=== PATIENT | female | born 1965 | race Caucasian/White ===

== ENCOUNTER 2016-09-26 22:10 | Emergency (ER) | payer OTHER ==
[2016-09-26 22:22] VITALS: BMI 33.2
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
[2016-09-26] MEDS ORDERED: ACETAMINOPHEN 325 MG TABLET (FP) PO ONE (23:55)
[2016-09-27] MEDS ORDERED: ACETAMINOPHEN 325 MG TABLET (FP) ONE
[2016-09-27 03:09] VITALS: BP 131/72; PULSE 67; TEMP 98
== END 2016-09-27 03:09 | disposition home or self-care (01) ==
LOC: JER 22:10
DX: S00.33XA Contusion of nose, initial encounter (principal); G44.319 Acute post-traumatic headache, not intractable; Y04.2XXA Assault by strike against or bumped into by another person, initial encounter; Y93.89 Activity, other specified; Y92.118 Other place in children's home and orphanage as the place of occurrence of the external cause; Y99.0 Civilian activity done for income or pay; E11.9 Type 2 diabetes mellitus without complications; E78.00 Pure hypercholesterolemia, unspecified; D64.9 Anemia, unspecified
CPT/HCPCS: 70450-TC; 70486-TC; 72125-TC; 99281-25

== ENCOUNTER 2018-09-02 16:14 | Emergency (ER) | payer OTHER ==
[2018-09-02 16:19] VITALS: BP 167/89; PULSE 81; TEMP 97.4; BMI 33.0
[2018-09-02] MEDS ORDERED: DIPHTH,PERTUSS(ACELL),TET 0.5 ML DISP.SYRIN IM ONE ×2 (16:48→17:07)
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
[2018-09-02 17:05] LABS: BASO % 0.8 % (0-2.0); EOS % 0.8 % (0-4.5); HEMATOCRIT 38.8 % (32.4-45.2); HEMOGLOBIN 13.6 GM/dL (10.7-15.3); LYMPH % 35.3 % (8-40); MCH 32.5 pg (25.7-33.7); MCHC 35.1 g/dl (32.0-36.0); MEAN CELL VOLUME 92.5 fl (80-96); MEAN PLT VOLUME 10.2 fl (7.5-11.1); MONO % 3.8 % (3.8-10.2); NEUT % 59.3 % (42.8-82.8); PLATELET COUNT 194 K/MM3 (134-434); RBC 4.19 M/mm3 (3.60-5.2); RDW 13.3 % (11.6-15.6); WHITE BLOOD COUNT 7.2 K/mm3 (4.0-10.0)
[2018-09-02] MEDS ORDERED: HIV POST EXPOSURE PROPHYLAXIS KIT NR ONE (17:10)
[2018-09-02] MEDS ORDERED: CEPHALEXIN MONOHYDRATE 500 MG CAPSULE (UD) PO ONE (17:10)
[2018-09-02] MEDS ORDERED: CEPHALEXIN MONOHYDRATE 500 MG CAPSULE (UD) ONE (17:15)
[2018-09-02] MEDS ORDERED: HIV POST EXPOSURE PROPHYLAXIS KIT PO ONE (17:17)
[2018-09-02 17:49] LABS: ALBUMIN 4.3 g/dl (3.4-5.0); ALK PHOS 101 U/L (45-117); ANION GAP 5 MMOL/L (8-16); BILIRUBIN,TOTAL 0.2 mg/dL (0.2-1); BLOOD UREA NITROGEN 14 mg/dL (7-18); CALCIUM 9.2 mg/dL (8.5-10.1); CHLORIDE 102 mmol/L (98-107); CO2 29 mmol/L (21-32); CREATININE 0.6 mg/dL (0.55-1.3); GLUCOSE,RANDOM 98 mg/dL (74-106); POTASSIUM 3.8 mmol/L (3.5-5.1); SGOT/AST 19 U/L (15-37); SGPT/ALT 33 U/L (13-61); SODIUM 137 mmol/L (136-145); TOT PROT 7.6 g/dl (6.4-8.2)
[2018-09-02] MEDS ORDERED: BACITRACIN 15 GM TUBE TOPICAL OINTMENT TP ONE (18:05)
[2018-09-02] MEDS ORDERED: BACITRACIN 15 GM TUBE TOPICAL OINTMENT ONE (18:09)
[2018-09-04 02:12] LABS: HBsAG SCREEN Negative (Negative)
== END 2018-09-02 18:15 | disposition home or self-care (01) ==
LOC: JERFT 16:14
PROC: 3E0234Z Introduction of Serum, Toxoid and Vaccine into Muscle, Percutaneous Approach (ICD-10-PCS; principal; 2018-09-02)
DX: S61.551A Open bite of right wrist, initial encounter (principal); W50.3XXA Accidental bite by another person, initial encounter; Y93.F9 Activity, other caregiving; Y92.118 Other place in children's home and orphanage as the place of occurrence of the external cause; Y99.0 Civilian activity done for income or pay
CPT/HCPCS: 36415; 80053; 85025; 86317; 86706; 86803; 87340; 87389; 90715; 99281-25

== ENCOUNTER 2019-08-25 15:27 | Emergency (ER) | payer OTHER ==
[2019-08-25 15:34] VITALS: BP 139/80; PULSE 94; TEMP 98; BMI 32.5
--- NOTE | 2019-08-25 16:02 | PDOC ---
History of Present Illness - General Chief Complaint: Eye Problem Stated Complaint: SWOLLEN RT EYE Time Seen by Provider: 08/25/19 15:35 History Source: Patient Exam Limitations: Clinical Condition - History of Present Illness Initial Comments: 08/25/19 16:05 Patient with history of diabetes presented with complaint of 2 days history of redness and swelling to right upper eyelid with mild pain to corner of eyelid for 2 days. Denies blurry vision, change in vision redness to eye. Patient report has similar episode in the past which resolved with eyedrops. Patient requests referral to ophthalmology which her friend sees. Denies any other symptoms. Denies any trauma or injury to eye Is this a multiple visit Asthma Patient?: No Timing/Duration: other (2 days) Past History - Past Medical History Allergies/Adverse Reactions: Allergies Allergy/AdvReac Type Severity Reaction Status Date / Time No Known Allergies Allergy Verified 08/25/19 15:34 Home Medications: Ambulatory Orders Atorvastatin Ca [Lipitor] 20 mg PO HS 08/25/19 Cyclobenzaprine HCl [Flexeril -] 10 mg PO HS 08/25/19 Erythromycin 0.5% Eye Ointment [Erythromycin 0.5% Eye Ointment -] 1 applic OD TID 5 Days #1 tube 08/25/19 HYDROmorphone [Dilaudid -] 4 mg PO Q6H 08/25/19 Metformin HCl [Glucophage] 500 mg PO BID 08/25/19 Anemia: Yes COPD: No Diabetes: Yes GI Disorders: Yes Hypercholesterolemia: Yes - Immunization History Immunization Up to Date: Yes - Psycho Social/Smoking Cessation Hx Smoking Status: No Smoking History: Never smoked Have you smoked in the past 12 months: No Number of Cigarettes Smoked Daily: 0 Hx Alcohol Use: Yes (Ocassional) Substance Use Type: Alcohol Review of Systems - Review of Systems Able to Perform ROS?: Yes Is the patient limited Moldovan proficient: No Constitutional: No: Chills, Fever, Malaise HEENTM: Yes: Symptoms Reported, See HPI, Eye Pain (swelling to right upper eyelid). No: Blurred Vision, Tearing, Recent change in vision, Double Vision, Cataracts, Ear Pain, Ocular Prothesis, Ear Discharge, Nose Pain, Nose Congestion , Tinnitus, Nose Bleeding, Hearing Loss, Throat Pain, Throat Swelling, Mouth Pain, Dental Problems, Difficulty Swallowing, Mouth Swelling, Other Respiratory: No: Symptoms reported, See HPI, Cough, Orthopnea, Shortness of Breath, SOB with Exertion, SOB at Rest, Stridor, Wheezing, Productive cough, Hemoptysis, Other Cardiac (ROS): No: Symptoms Reported, See HPI, Chest Pain, Edema, Irregular Heart Rate, Lightheadedness, Palpitations, Syncope, Chest Tightness, Other ABD/GI: No: Symptoms Reported, See HPI, Nausea, Vomiting Musculoskeletal: No: Symptoms Reported Integumentary: Yes: Symptoms Reported, See HPI, Erythema (right upper eyelid) Neurological: No: Symptoms reported All Other Systems: Reviewed and Negative *Physical Exam - Vital Signs Last Vital Signs Temp Pulse Resp BP Pulse Ox 98 F 94 H 18 139/80 99 08/25/19 15:31 08/25/19 15:31 08/25/19 15:31 08/25/19 15:31 08/25/19 15:31 - Physical Exam 08/25/19 16:08 GENERAL: Well developed, well nourished. Awake and alert. No acute distress. HEENT: Mild erythema to right upper eyelid with mild swelling to right upper eyelid. Right lower eyelid and left eyelids normal. Normocephalic, atraumatic. PERRLA, EOMI. No conjunctival pallor. Sclera are non-icteric. Moist mucous membranes. Oropharynx is clear. NECK: Supple. Full ROM. CARDIOVASCULAR: Regular rate and rhythm. No murmurs, rubs, or gallops. PULMONARY: No evidence of respiratory distress. Lungs clear to auscultation bilaterally. No wheezing, rales or rhonchi. MUSCULOSKELETAL Normal range of motion at all joints. SKIN: Warm and dry. Normal capillary refill. Mild swelling with mild erythema to right upper eyelid. No palpable nodule to eyelid NEUROLOGICAL: Alert, awake, appropriate. Gait is normal without ataxia. PSYCHIATRIC: Cooperative. Good eye contact. Appropriate mood General Appearance: Yes: Nourished, Appropriately Dressed. No: Apparent Distress Medical Decision Making - Medical Decision Making 08/25/19 16:06 Patient with history of diabetes presented with complaint of 2 days history of redness and swelling to right upper eyelid with mild pain to corner of eyelid for 2 days. Denies blurry vision, change in vision redness to eye. Patient report has similar episode in the past which resolved with eyedrops. Patient requests referral to ophthalmology which her friend sees. Denies any other symptoms. Denies any trauma or injury to eye Exam significant for mild erythema with mild swelling to right upper eyelid. Right lower eyelid normal and left eyelids normal with no swelling. Conjunctive are clear with no erythema. Patient symptoms likely blepharitis and stable for discharge on topical erythromycin ointment with ophthalmology follow-up Discharge - Discharge Information Problems reviewed: Yes Clinical Impression/Diagnosis: Blepharitis of eyelid of left eye Qualifiers: Blepharitis type: unspecified type Eyelid: upper Qualified Code(s): H01.004 - Unspecified blepharitis left upper eyelid Condition: Stable Disposition: HOME - Admission No - Additional Discharge Information Prescriptions: Erythromycin 0.5% Eye Ointment [Erythromycin 0.5% Eye Ointment -] 1 applic OD TID 5 Days #1 tube - Follow up/Referral Referrals: Theresa Zelaya MD [Primary Care Provider] - Marcel Smith MD [Non Staff, Medical] - Call tomorrow (call to follow-up at [place] [facility] at [address] [place] [address], [facility], [place]) - Patient Discharge Instructions Patient Printed Discharge Instructions: DI for Blepharitis Additional Instructions: Use prescribed antibiotics ointment as prescribed. Apply warm compress to eyelid 2-3 times a day as discussed for swelling. Follow-up referred ophthalmology as soon as possible - Post Discharge Activity
== END 2019-08-25 16:12 | disposition home or self-care (01) ==
LOC: JERFT 15:27
DX: H01.001 Unspecified blepharitis right upper eyelid (principal)
CPT/HCPCS: 99283-25

== ENCOUNTER 2023-04-15 17:03 | Emergency (ER) | payer OTHER ==
[2023-04-15 17:11] VITALS: BMI 34.0
[2023-04-15] MEDS ORDERED: ACETAMINOPHEN 1000 MG/100 ML BAG IVPB ONE (18:53)
[2023-04-15] MEDS ORDERED: METOCLOPRAMIDE HCL INJECTION 10 MG/2 ML VIAL IVPUSH ONE (18:53)
[2023-04-15] MEDS ORDERED: ACETAMINOPHEN INJECTION 100 ML IVPB ONE (19:33)
[2023-04-15] MEDS ORDERED: METOCLOPRAMIDE HCL INJECTION 10 MG/2 ML VIAL ONE (19:34)
[2023-04-15] MEDS ORDERED: LIDOCAINE 5% TOPICAL PATCH TP ONE (20:10)
[2023-04-15] MEDS ORDERED: LIDOCAINE 4% PATCH TP ONE (20:15)
[2023-04-15] MEDS ORDERED: KETOROLAC TROMETHAMINE 15 MG/ML VIAL IM ONE (20:23)
[2023-04-15] MEDS ORDERED: KETOROLAC TROMETHAMINE 15 MG/ML VIAL ONE (20:42)
[2023-04-15] MEDS ORDERED: KETOROLAC TROMETHAMINE 15 MG/ML VIAL IVPUSH ONE (20:54)
[2023-04-15 21:26] VITALS: BP 136/78; PULSE 76; RESP 19; TEMP 97.8
[2023-04-16] MEDS ORDERED: LIDOCAINE PATCH REMOVAL MC SCH (08:00)
== END 2023-04-15 21:26 | disposition home or self-care (01) ==
LOC: JERFT 17:03
PROC: 3E033NZ Introduction of Analgesics, Hypnotics, Sedatives into Peripheral Vein, Percutaneous Approach (ICD-10-PCS; principal; 2023-04-15)
PROC: 3E0333Z Introduction of Anti-inflammatory into Peripheral Vein, Percutaneous Approach (ICD-10-PCS; 2023-04-15)
PROC: 3E033GC Introduction of Other Therapeutic Substance into Peripheral Vein, Percutaneous Approach (ICD-10-PCS; 2023-04-15)
DX: S06.0X9A Concussion with loss of consciousness of unspecified duration, initial encounter (principal); M25.531 Pain in right wrist; M54.50 Low back pain, unspecified; R53.83 Other fatigue; W01.198A Fall on same level from slipping, tripping and stumbling with subsequent striking against other object, initial encounter
CPT/HCPCS: 70450-TC; 72100-TC-FY; 73110-TC-RT-FY; 82962; 99285-25